=== PATIENT | male | born 1995 ===

== ENCOUNTER → 2017-07-12 | Outpatient (CLI) | payer OTHER ==
[~2017-07-12] VITALS: Ht 152.4 cm; Wt 72.6 kg
== END | disposition home or self-care (01) ==
LOC: PPHC 13:20
DX: Z01.89 Encounter for other specified special examinations (principal)

== ENCOUNTER → 2017-09-13 | Outpatient (CLI) | payer OTHER | END | disposition home or self-care (01) | LOC: PPHC 14:09 | DX: R07.0 Pain in throat (principal) ==

== ENCOUNTER 2020-12-01 14:23 | Outpatient (CLI) | payer OTHER | END 2020-12-01 15:07 | disposition home or self-care (01) | LOC: RAD 14:23 | PROVIDERS: ATTEND Orthopaedic Surgery Sports Medicine | DX: M50.321 Other cervical disc degeneration at C4-C5 level (principal); M40.40 Postural lordosis, site unspecified | CPT/HCPCS: 72141 ==